=== PATIENT | female | born 1955 | race African-American/Black ===

== ENCOUNTER 2018-12-01 15:05 | Emergency (ER) | payer OTHER ==
--- NOTE | 2018-12-01 16:06 | ER Document Report ---
ED Medical Screen (RME) - General Chief Complaint: Leg Swelling Stated Complaint: SWOLLEN LEGS/DIZZYNESS/DIAHERRA Time Seen by Provider: 12/01/18 16:03 Mode of Arrival: Ambulatory Information source: Patient Notes: 63-year-old female presented to ED for diarrhea and swelling to the legs. She states she went to the primary doctor and they sent her to the ER because her legs were twice as large as they normally are since Thursday she is also had liquid stools. She states she has a history of elevated blood pressure with no medication she has had a double mastectomy due to right breast cancer with reconstruction she has a history of diabetes and she had a total hysterectomy due to BRCA2 positive. 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 She states she lives with her friends. She stated please do not order chest x-ray because she cannot afford one. I have explained to her that it is important for her to get an x-ray but she states she will refuse it. She is alert and oriented respirations regular nonlabored at this time. Nurse is contacting Sonny Miramontes in order to see if there is some financial help for her I have also recommended she speak with patient access and selective financial operations analyst forms. I have greeted and performed a rapid initial assessment of this patient. A comprehensive ED assessment and evaluation of the patient, analysis of test results and completion of medical decision making process will be conducted by an additional ED providers. - Related Data Allergies/Adverse Reactions: Penicillins Allergy (Intermediate, Verified 12/01/18 15:58) Hives Physical Exam - Vital signs Vitals: Temp Pulse Resp BP Pulse Ox 98.2 F 75 20 181/96 H 98 12/01/18 15:27 12/01/18 15:27 12/01/18 15:27 12/01/18 15:27 12/01/18 15:27 Course - Vital Signs Vital signs: Temp Pulse Resp BP Pulse Ox 98.2 F 75 20 181/96 H 98 12/01/18 15:27 12/01/18 15:27 12/01/18 15:27 12/01/18 15:27 12/01/18 15:27
[2018-12-01 16:55] LABS: APPEARANCE,URINE CLEAR; BILIRUBIN,URINE NEGATIVE (NEGATIVE); COLOR,URINE YELLOW; GLUCOSE, URINE 150 mg/dL (NEGATIVE); KETONES,URINE TRACE mg/dL (NEGATIVE); LEUKOCYTE ESTERASE,URINE NEGATIVE (NEGATIVE); NITRITE,URINE NEGATIVE (NEGATIVE); PROTEIN,URINE NEGATIVE (NEGATIVE); UROBILINOGEN,URINE NEGATIVE mg/dL (<2.0)
[2018-12-01 17:38] LABS: ABSOLUTE LYMPHOCYTES (AUTO) 1.8 10^3/uL (0.5-4.7); ABSOLUTE MONOCYTES (AUTO) 0.4 10^3/uL (0.1-1.4); ABSOLUTE NEUT (AUTO) 2.7 10^3/uL (1.7-8.2); BASOPHILS % (AUTO) 0.7 % (0-2); EOSINOPHILS % (AUTO) 0.6 % (0-6); HEMATOCRIT 36.4 % (36.0-47.0); HEMOGLOBIN 12.5 g/dL (12.0-15.5); LYMPHOCYTES % (AUTO) 36.3 % (13-45); MEAN CORPUSCULAR HEMOGLOBIN 30.6 pg (27.0-33.4); MEAN CORPUSCULAR HGB CONC 34.4 g/dL (32.0-36.0); MEAN CORPUSCULAR VOLUME 89 fl (80-97); MONOCYTES % (AUTO) 7.3 % (3-13); PLATELET COUNT 277 10^3/uL (150-450); RED BLOOD COUNT 4.09 10^6/uL (3.72-5.28); RED CELL DISTRIBUTION WIDTH 13.2 % (11.5-14.0); SEGMENTED NEUTROPHILS % (AUTO) 55.1 % (42-78); TOTAL CELLS COUNTED % (AUTO) 100 %; WHITE BLOOD COUNT 4.8 10^3/uL (4.0-10.5)
--- NOTE | 2018-12-01 17:44 | EKG REPORT ---
SEVERITY:- NORMAL ECG - SINUS RHYTHM : Confirmed by: Tha Rizvi MD 01-Dec-2018 17:43:40
[2018-12-01 18:10] LABS: ALBUMIN 3.9 g/dL (3.5-5.0); ALKALINE PHOSPHATASE 94 U/L (38-126); ANION GAP 8 (5-19); ASPARTATE AMINO TRANSFERASE 18 U/L (14-36); BILIRUBIN,DIRECT 0.2 mg/dL (0.0-0.4); BILIRUBIN,TOTAL 0.6 mg/dL (0.2-1.3); BLOOD UREA NITROGEN 24 mg/dL (7-20); CALCIUM 9.1 mg/dL (8.4-10.2); CARBON DIOXIDE 29 mmol/L (22-30); CHLORIDE 100 mmol/L (98-107); CREATINE KINASE 186 U/L (30-135); GLUCOSE 263 mg/dL (75-110); TOTAL PROTEIN 7.4 g/dL (6.3-8.2)
[2018-12-01 18:23] LABS: CREATINE KINASE MB 1.32 ng/mL (<4.55); NT PRO BNP 194 pg/mL (5-900)
[2018-12-01 18:30] LABS: TROPONIN I < 0.012 ng/mL
--- NOTE | 2018-12-01 21:15 | ER Document Report ---
ED Extremity Problem, Lower - General Chief Complaint: Leg Swelling Stated Complaint: SWOLLEN LEGS/DIZZYNESS/DIAHERRA Time Seen by Provider: 12/01/18 16:03 Primary Care Provider: CHRISTIANO LIN PA-C [Primary Care Provider] - Follow up as needed Mode of Arrival: Ambulatory Notes: Patient is a 63-year-old female that comes to the emergency department for chief complaint of swelling to both legs. She states she is out of her medications which include triamterene and low-dose hydrochlorothiazide along with Januvia. She states she has a primary care appointment for December 26 set up with local primary care but she has not made it there yet, she denies any other complaints including vomiting, shortness of breath, chest pain, fever/chills. She stands for work and the swelling has gradually been getting worse. TRAVEL OUTSIDE OF THE [place] IN LAST 30 DAYS: No - Related Data Allergies/Adverse Reactions: Penicillins Allergy (Intermediate, Verified 12/01/18 15:58) Hives Past Medical History - General Information source: Patient - Social History Smoking Status: Current Every Day Smoker Chew tobacco use (# tins/day): No Frequency of alcohol use: None Drug Abuse: None Lives with: Family Family History: Reviewed & Not Pertinent Patient has suicidal ideation: No Patient has homicidal ideation: No - Past Medical History Cardiac Medical History: Reports: Hx Hypercholesterolemia, Hx Hypertension Past Surgical History: Reports: Hx Breast Surgery Review of Systems - Review of Systems Constitutional: No symptoms reported EENT: No symptoms reported Cardiovascular: See HPI Respiratory: No symptoms reported Gastrointestinal: No symptoms reported Genitourinary: No symptoms reported Female Genitourinary: No symptoms reported Musculoskeletal: See HPI Skin: No symptoms reported Hematologic/Lymphatic: No symptoms reported Neurological/Psychological: No symptoms reported Physical Exam - Vital signs Vitals: Temp Pulse Resp BP Pulse Ox 98.2 F 75 20 181/96 H 98 12/01/18 15:27 12/01/18 15:27 12/01/18 15:27 12/01/18 15:27 12/01/18 15:27 - Notes Notes: GENERAL: Alert, interacts well. No acute distress. HEAD: Normocephalic, atraumatic. EYES: Pupils equal, round, and reactive to light. Extraocular movements intact. ENT: Oral mucosa moist, tongue midline. Oropharynx unremarkable. Airway patent. LUNGS: Clear to auscultation bilaterally, no wheezes, rales, or rhonchi. No respiratory distress. HEART: Regular rate and rhythm. No murmur ABDOMEN: Soft, non-tender. Non-distended. EXTREMITIES: Moves all 4 extremities spontaneously. Mild 1+ edema without significant pitting which is bilateral and equal. Normal radial and dorsalis pedis pulses bilaterally. No cyanosis. BACK: no cervical, thoracic, lumbar midline tenderness. No saddle anesthesia, normal distal neurovascular exam. Moves all extremities in full range of motion. NEUROLOGICAL: Alert and oriented x3. Normal speech. Cranial nerves II through XII grossly intact. PSYCH: Normal affect, normal mood. SKIN: Warm, dry, normal turgor. No rashes or lesions noted. Course - Re-evaluation Re-evalutation: Laboratory work-up shows some hyperglycemia without acidosis and some dehydration on urinalysis. Otherwise unremarkable. BNP is not elevated. Troponin is not elevated. No chest x-ray is performed the patient has no shortness of breath and she has no rales on exam. Lungs are clear. She has some edema of the lower extremities but this is not severe and it is not significantly pitting either. It is also bilateral. Patient is requesting to leave but is requesting refills of her diuretics/hypertension medications and her type 2 diabetes medications. She is able to ambulate without difficulty. Patient was provided with these, discussed follow-up and return precautions. Patient states understanding and agreement. - Vital Signs Vital signs: Temp Pulse Resp BP Pulse Ox 98.2 F 71 18 163/89 H 99 12/01/18 22:08 12/01/18 22:08 12/01/18 22:08 12/01/18 22:08 12/01/18 22:08 - Laboratory Result Diagrams: 12/01/18 17:35 12/01/18 17:35 Laboratory results interpreted by me: 12/01/18 12/01/18 16:32 17:35 BUN 24 H Glucose 263 H Creatine Kinase 186 H Urine Glucose (UA) 150 H Urine Ketones TRACE H Discharge - Discharge Clinical Impression: Has run out of medications, Swelling of lower extremity Condition: Stable Disposition: HOME, SELF-CARE Additional Instructions: Your work-up shows elevated blood glucose but is nonspecific otherwise. Please take your regular prescribed medications, follow-up with your primary care appointment for additional management and reevaluation. I recommend elevating her legs, wearing the compression stockings, hopefully the diuretics will help as well. Return if you worsen including developing severe pain or redness, fever, difficulty breathing, vomiting, or any other concerning symptoms. Prescriptions: Hydrochlorothiazide 12.5 mg PO DAILY #30 tablet Sitagliptin Phosphate [Januvia] 100 mg PO DAILY #30 tablet Triamterene 50 mg PO BID #60 capsule Forms: Return to Work Referrals: CHRISTIANO LIN PA-C [Primary Care Provider] - Follow up as needed
[2018-12-01 22:08] VITALS: BP 163/89
== END 2018-12-01 22:10 | disposition home or self-care (01) ==
LOC: ER 15:05
DX: M79.89 Other specified soft tissue disorders (principal); R42 Dizziness and giddiness; R19.7 Diarrhea, unspecified; Z79.899 Other long term (current) drug therapy; F17.200 Nicotine dependence, unspecified, uncomplicated
CPT/HCPCS: 36415; 80053; 81001; 82550; 82553; 83690; 83880; 84484; 85025; 93005; 93010; 99283